=== PATIENT | female | born 1940 | race Caucasian/White ===

== ENCOUNTER → 2020-10-27 | Day surgery (SDC) | payer MEDICARE ==
[~2020-10-27] MED LIST: ALBUTEROL1.25 MG/3 INH; ALL DAY ALLERGY10 M2 PO; AMARYL 2MG TABLE2 MG PO; BUSPIRONE HCL10 MG PO; CELEBREX 100MG100 MG PO; CRESTOR5 MG PO; CYANOCOBAL1000 MCG/1 INJ; ENALAPRIL MALEA20 MG PO; FISH OIL 1,0001 EACH PO; FLONASE ALLER15.8 ML; GABAPENTIN600 MG PO; GLUCOPHAGE500 MG PO; HYDROCODON-ACE1 EAC6 PO; KLONOPIN TAB 00.5 MG PO; MELATONIN10 M2 PO; NIACIN1000 MG PO; NORVASC5 MG PO; SINGULAIR10 MG PO; TENORMIN50 MG PO; VENTOLIN HFA 66.7 GM INH; VITAMIN D; VITAMIN D21250 MCG PO; ZOLOFT25 MG PO
== END | disposition home or self-care (01) ==
LOC: OR 06:40
DX: R91.8 Other nonspecific abnormal finding of lung field (principal); E78.5 Hyperlipidemia, unspecified; E11.9 Type 2 diabetes mellitus without complications; I11.0 Hypertensive heart disease with heart failure; I50.9 Heart failure, unspecified; K21.9 Gastro-esophageal reflux disease without esophagitis; K44.9 Diaphragmatic hernia without obstruction or gangrene; M19.90 Unspecified osteoarthritis, unspecified site; Z83.3 Family history of diabetes mellitus; Z82.3 Family history of stroke; Z82.49 Family history of ischemic heart disease and other diseases of the circulatory system; Z87.891 Personal history of nicotine dependence
CPT/HCPCS: 71045; 76000; 82962; J2704; J7120

== ENCOUNTER → 2020-11-16 | Outpatient (CLI) | payer MEDICARE ==
[2020-11-16 07:20] LABS: HEMOGLOBIN 12.1 gm/dl (12.3-15.3); RED BLOOD COUNT 3.68 M/UL (4.00-5.10); WHITE BLOOD COUNT 4.9 K/UL (4.5-11.0)
== END ==
LOC: CT 06:26
PROVIDERS: Internal Medicine Pulmonary Disease
DX: C34.31 Malignant neoplasm of lower lobe, right bronchus or lung (principal); F17.210 Nicotine dependence, cigarettes, uncomplicated; Z91.040 Latex allergy status; Z88.8 Allergy status to other drugs, medicaments and biological substances; Z79.899 Other long term (current) drug therapy
CPT/HCPCS: 71045; 82962; 85027; 85610; 85730; 88341; 88342